=== PATIENT | male | born 1995 | race Native Hawaiian/Other Pacific Islander ===

== ENCOUNTER 2019-07-09 02:52 | Emergency (ER) | payer OTHER ==
[~2019-07-09] VITALS: Ht 172.7 cm; Wt 99.8 kg
--- NOTE | 2019-07-09 03:08 | NUR ---
PT DENIES SI/HI. PLACED ON SAFETY AND FALL PRECAUTIONS.
--- NOTE | 2019-07-09 03:08 | NUR ---
PT [id number] D/T OVERDOSE ON OXYCODONE/CONTIN 30 MG. XANAX 2 MG. COUGH AND VOMITING NOTED. PT GIVEN 2 MG IVP AND 4 MG NARCAN NASAL SPRAY. PT CONNECTED TO THE INSEAM LEVELER AND POX
[2019-07-09 03:15] LABS: BASOPHILS # (AUTO) 0.1 /CMM (0.0-0.2); BASOPHILS % (AUTO) 0.4 % (0.0-2.0); EOSINOPHILS % (AUTO) 1.1 % (0.0-6.0); HEMATOCRIT 50 % (39-51); HEMOGLOBIN 16.7 g/dL (13.5-17.5); LYMPHOCYTES % (AUTO) 29.9 % (20.0-44.0); MEAN CORPUSCULAR HGB CONC 34 g/dl (31.0-36.0); MEAN CORPUSCULAR VOLUME 93 fL (80-96); MONOCYTES # (AUTO) 0.7 /CMM (0.1-1.30); MONOCYTES % (AUTO) 4.9 % (2.0-12.0); NEUTROPHILS # (AUTO) 8.6 /CMM (1.8-8.9); NEUTROPHILS % (AUTO) 63.7 % (43.0-81.0); PLATELET COUNT (AUTO) 358 /CMM (150-450); WHITE BLOOD COUNT (AUTO) 13.5 K/uL (4.3-11.0)
[2019-07-09 03:17] LABS: CALCIUM, SERUM 8.9 mg/dL (8.5-10.1); CARBON DIOXIDE 23 mmol/L (21-32); CHLORIDE 100 mmol/L (98-107); CREATININE 1.2 mg/dL (0.6-1.3); GLUCOSE 170 mg/dL (74-106); POTASSIUM 3.2 mmol/L (3.5-5.1); SODIUM SERUM 136 mmol/L (136-145); UREA NITROGEN, BLOOD 8 mg/dL (7-18)
--- NOTE | 2019-07-09 03:20 | NUR ---
PLACED ON 2L O2 N/C SATTING 96%
[2019-07-09 03:23] LABS: ACETAMINOPHEN 0 ug/ml (10-30); ALANINE AMINOTRANSFERASE 80 U/L (12-78); ALBUMIN 4.2 g/dL (3.4-5.0); ALCOHOL, BLOOD < 3 mg/dL (0-0); ALKALINE PHOSPHATASE 120 U/L (46-116); ASPARTATE AMINOTRANSFERASE 35 U/L (15-37); BILIRUBIN,DIRECT 0.1 mg/dL (0.0-0.2); BILIRUBIN,TOTAL 0.4 mg/dL (0.2-1.0); SALICYLATE 2.1 mg/dL (2.8-20.0)
--- NOTE | 2019-07-09 03:40 | NUR ---
XRAY AT BEDSIDE
--- NOTE | 2019-07-09 04:00 | NUR ---
PT STILL UNABLE TO PROVIDE URINE. AWARE
[2019-07-09] MEDS ORDERED: ONDANSETRON HCL/PF 4 MG/2 ML VIAL ONE (04:10)
[2019-07-09] MEDS ORDERED: NALOXONE PREFILLED SYRINGE 2 MG/2 ML SYRINGE ONE (04:10)
[2019-07-09] MEDS ORDERED: NALOXONE PREFILLED SYRINGE 2 MG/2 ML SYRINGE IV ONE (04:30)
[2019-07-09] MEDS ORDERED: ONDANSETRON HCL/PF - ER 4 MG/2 ML VIAL IV ONE (04:30)
--- NOTE | 2019-07-09 05:54 | NUR ---
SPOKE W/ PATIENT'S MOM, CHATO TABOR REGARDING PATIENT'S UPDATE
--- NOTE | 2019-07-09 05:57 | NUR ---
ASKED PT FOR URINE SAMPLE. PT UNABLE TO PROVIDE
[2019-07-09] MEDS ORDERED: IV NS 0.9% 500 ML IV ONE (06:00)
--- NOTE | 2019-07-09 06:21 | NUR ---
spoke with jeremi milton over the phone.
--- NOTE | 2019-07-09 06:21 | NUR ---
PATIENT'S MOM CHATO
--- NOTE | 2019-07-09 06:54 | NUR ---
CALLED [facility] AGAIN FOR URINE FOLLOW-UP
--- NOTE | 2019-07-09 07:34 | NUR ---
REPORT GIVEN TO DEJON LOOMIS FOR RAY
[2019-07-09 07:52] LABS: APPEARANCE,URINE Clear (CLEAR); BILIRUBIN,URINE SMALL (NEGATIVE); BLOOD, URINE Trace-lysed Ery/uL (NEGATIVE); COLOR,URINE Yellow (YELLOW); KETONES,URINE 15 (NEGATIVE); LEUKOCYTE ESTERASE ,URINE Negative (NEGATIVE); NITRITE, URINE Negative (NEGATIVE); PROTEIN,URINE 100 mg/dl (NEGATIVE); UGLUCOSE Negative (NEGATIVE); UROBILINOGEN,URINE 0.2 EU/dL (0.2)
[2019-07-09 07:55] LABS: BACTERIA,URINE Rare /HPF (None Seen); SQUAMOUS EPITHELIAL CELL,UR Rare /HPF (None Seen); WBC,URINE 0-2 /HPF (0-3)
--- NOTE | 2019-07-09 09:19 | NUR ---
PATIENT ASLEEP, EASILY AROUSABLE, VSS. NO DISTRESS NOTED.
--- NOTE | 2019-07-09 09:25 | NUR ---
Patient awake, a/ox4, no distress noted. Given water. Breathing even and unlabored, ambulatory with steady gait. Called friend for clam picker. IV removed. Catheter intact and site benign. Pressure and 4x4 applied to site. No bleeding noted.Patient discharged to home in stable condition. Written and verbal after care instructions given. Patient verbalizes understanding of instruction.
[2019-07-09 10:51] VITALS: BP 141/87
== END 2019-07-09 10:30 | disposition home or self-care (01) ==
LOC: ER 02:54
DX: T40.2X2A Poisoning by other opioids, intentional self-harm, initial encounter (principal); T42.4X2A Poisoning by benzodiazepines, intentional self-harm, initial encounter; F19.10 Other psychoactive substance abuse, uncomplicated; J45.909 Unspecified asthma, uncomplicated; Y92.89 Other specified places as the place of occurrence of the external cause
CPT/HCPCS: 36415; 71045; 80048; 80076; 80305; 80307; 80329; 81001; 85025; 96374; 96375; 99285; G0480; J2310; J2405; J7030; 81000-TC